=== PATIENT | female | born 1950 | race Two or more races ===

== ENCOUNTER 2021-01-16 05:20 | Day surgery (SDC) | payer OTHER | END 2021-01-16 10:25 | disposition home or self-care (01) | LOC: AMB-ENDOS 05:20 | PROVIDERS: ATTEND Surgery | DX: D12.4 Benign neoplasm of descending colon (principal); Z20.822 Contact with and (suspected) exposure to COVID-19; Z12.11 Encounter for screening for malignant neoplasm of colon ==

== ENCOUNTER 2021-02-08 05:25 | Day surgery (SDC) | payer OTHER ==
[~2021-02-08 05:25] MED LIST: CILOSTAZOL100 MG PO; ECOTRIN81 MG PO; GABAPENTIN400 MG PO; HUMULIN N100 UNIT/1; HYDROCHLOROTHIA25 MG PO; LIPITOR40 MG PO; PLAVIX75 MG PO; ZESTRIL40 M1 PO; ZYLOPRIM100 MG PO
[2021-02-08] MEDS ORDERED: PERCOCET 5-3251 EACH PO (15:03)
== END 2021-02-08 21:28 | disposition home or self-care (01) ==
LOC: CIR.AMB 05:25
PROVIDERS: ATTEND Surgery
DX: K64.8 Other hemorrhoids (principal); Z20.822 Contact with and (suspected) exposure to COVID-19